=== PATIENT | female | born 1990 | race Caucasian/White ===

== ENCOUNTER 2021-03-12 03:59 | Emergency (ER) | payer MEDICAID ==
[~2021-03-12] VITALS: Ht 165.1 cm; Wt 80.0 kg
[2021-03-12] MEDS ORDERED: KETOROLAC 30MG/ML VIAL IM ONE (04:45)
[2021-03-12] MEDS ORDERED: IBUP-2029 MT (04:59)
[2021-03-12] MEDS: TETANUS, DIPHTHERIA, PERTUSSIS VAC/PF 0.5ML (>10YR OLD) IM ONE ×2 (05:03→05:11)
[2021-03-12 05:28] VITALS: BP 125/74
== END 2021-03-12 06:24 | disposition home or self-care (01) ==
LOC: ER 03:59
DX: S16.1XXA Strain of muscle, fascia and tendon at neck level, initial encounter (principal); S09.8XXA Other specified injuries of head, initial encounter; V49.59XA Passenger injured in collision with other motor vehicles in traffic accident, initial encounter; Y93.89 Activity, other specified; Y92.89 Other specified places as the place of occurrence of the external cause; Y99.8 Other external cause status
CPT/HCPCS: 81025; 90715; 96372; 99283; J1885